=== PATIENT | male | born 1940 | race Caucasian/White ===

== ENCOUNTER 2018-06-10 15:28 | Emergency (ER) | payer MEDICARE ==
[~2018-06-10] VITALS: Ht 177.8 cm; Wt 65.0 kg
[2018-06-10 15:38] VITALS: BP 134/71
== END 2018-06-10 17:54 | disposition home or self-care (01) ==
LOC: ED 17:30
DX: M25.562 Pain in left knee (principal)
CPT/HCPCS: 99284

== ENCOUNTER 2018-09-17 11:11 | Emergency (ER) | payer MEDICARE ==
[~2018-09-17] VITALS: Ht 175.3 cm; Wt 55.0 kg
[2018-09-17 11:37] VITALS: BP 119/67
--- NOTE | 2018-09-17 11:53 | NUR ---
pt states he fell 3 months ago and was seen by AGNIESZKA who indicated his tibial fracture would heal without surgery. pt has had multiple additional falls the last one was yesterday. pt states increased pain to left and right side. requesting assessment.
--- NOTE | 2018-09-17 12:28 | NUR ---
pt in radiology at this time
== END 2018-09-17 14:56 | disposition home or self-care (01) ==
LOC: ED 13:36
DX: S82.225A Nondisplaced transverse fracture of shaft of left tibia, initial encounter for closed fracture (principal); S29.9XXA Unspecified injury of thorax, initial encounter; W18.30XA Fall on same level, unspecified, initial encounter; Y93.89 Activity, other specified; Y92.89 Other specified places as the place of occurrence of the external cause; Y99.8 Other external cause status
CPT/HCPCS: 99284

== ENCOUNTER 2018-12-22 10:27 | Emergency (ER) | payer MEDICARE ==
[~2018-12-22] VITALS: Ht 172.7 cm; Wt 58.2 kg
[2018-12-22 11:37] VITALS: BP 125/61
[2018-12-22 11:40] LABS: BASOPHILS # (AUTO) 0.03 x10^3/uL (0-0.1); BASOPHILS % (AUTO) 0 % (0-1); EOSINOPHILS # (AUTO) 0.09 x10^3/uL (0-0.4); EOSINOPHILS % (AUTO) 1 % (1-7); LYMPHOCYTES # (AUTO) 1.77 x10^3/uL (1-3.4); LYMPHOCYTES % (AUTO) 23 % (22-44); MD NO; MEAN CORPUSCULAR HEMOGLOBIN 31.3 pg (27.5-34.5); MEAN CORPUSCULAR HGB CONC 33.8 g/dL (33.2-36.2); MEAN CORPUSCULAR VOLUME 92.4 fL (81-97); MEAN PLATELET VOLUME 6.9 fL (7.4-10.4); MONOCYTES # (AUTO) 0.56 x10^3/uL (0.2-0.8); MONOCYTES % (AUTO) 7 % (2-9); NEUTROPHILS # (AUTO) 5.16 x10^3/uL (1.8-6.8); NEUTROPHILS % (AUTO) 68 % (42-75); PLATELET COUNT 165 x10^3/uL (130-400); RED BLOOD COUNT 2.72 x10^6/uL (4.38-5.82); RED CELL DISTRIBUTION WIDTH 17.2 % (9.4-14.8)
[2018-12-22 11:49] LABS: INTERNATIONAL NORMALIZED RATIO 1.11 (0.93-1.1); PROTHROMBIN TIME 11.6 Seconds (9.6-11.5)
[2018-12-22 12:00] LABS: ALBUMIN 3.4 g/dL (3.4-5.0); ANION GAP 6 mmol/L (5-15); CALCIUM 8.6 mg/dL (8.5-10.1); CHLORIDE 103 mmol/L (98-107); CREATININE 0.71 mg/dL (0.7-1.3)
== END 2018-12-22 13:38 | disposition home or self-care (01) ==
LOC: ED 10:40
DX: R60.0 Localized edema (principal); D63.8 Anemia in other chronic diseases classified elsewhere
CPT/HCPCS: 36415; 80048; 82040; 85025; 85610; 85730; 99284

== ENCOUNTER 2019-02-04 08:20 | Inpatient (IN) | payer MEDICARE ==
[~2019-02-04] VITALS: Ht 170.2 cm; Wt 64.2 kg
--- NOTE | 2019-02-04 08:31 | NUR ---
POA: Judy Mccray [phone] sister covering Kelli Coyne [phone]
--- NOTE | 2019-02-04 08:59 | NUR ---
PT BIB [facility] FOR LEFT KNEE PAIN/WEAKNESS. PT INJURED LEFT KNEE IN AUGUST AND HAS BEEN PENDING ARTERIAL STUDY PRIOR TO SURGERY WITH DR. CROWDER. PT REQUESTING "ARTERIAL STUDY" AND "PAIN MEDS." PT STATED TO EMS THAT HIS LEGS "GAVE OUT ON ME AND I SLID TO THE GROUND BUT DIDN'T HIT MY HEAD."
[2019-02-04] MEDS ORDERED: ACET650S21 PO (09:17)
[2019-02-04] MEDS ORDERED: MELO15TA24 PO (09:17)
[2019-02-04] MEDS ORDERED: TIZA2TAB PO (09:17)
[2019-02-04 09:33] LABS: BASOPHILS # (AUTO) 0.03 x10^3/uL (0-0.1); BASOPHILS % (AUTO) 0 % (0-1); EOSINOPHILS % (AUTO) 1 % (1-7); LYMPHOCYTES # (AUTO) 1.47 x10^3/uL (1-3.4); LYMPHOCYTES % (AUTO) 20 % (22-44); MD NO; MEAN CORPUSCULAR HEMOGLOBIN 31.7 pg (27.5-34.5); MEAN CORPUSCULAR HGB CONC 32.3 g/dL (33.2-36.2); MEAN CORPUSCULAR VOLUME 98.1 fL (81-97); MEAN PLATELET VOLUME 6.9 fL (7.4-10.4); MONOCYTES # (AUTO) 0.62 x10^3/uL (0.2-0.8); MONOCYTES % (AUTO) 8 % (2-9); NEUTROPHILS # (AUTO) 5.26 x10^3/uL (1.8-6.8); NEUTROPHILS % (AUTO) 70 % (42-75); PLATELET COUNT 153 x10^3/uL (130-400); RED CELL DISTRIBUTION WIDTH 18.4 % (9.4-14.8)
[2019-02-04 09:43] LABS: ALBUMIN 3.2 g/dL (3.4-5.0); ANION GAP 8 mmol/L (5-15); CHLORIDE 101 mmol/L (98-107); CREATININE 0.68 mg/dL (0.7-1.3)
[2019-02-04 10:37] LABS: HCT (SEDRATE) 30.4 % (39.2-51.8)
[2019-02-04 10:48] LABS: MICROSCOPIC NOT IND
[2019-02-04 10:50] LABS: CULTURE INDICATED? NO
[2019-02-04] MEDS ORDERED: OXYcodone/APAP 5/325MG TABLET PO ONE (11:30)
[2019-02-04] MEDS ORDERED: OXYcodone/APAP 5/325MG TABLET ONE (11:32)
--- NOTE | 2019-02-04 11:36 | NUR ---
Preceptor RN: Provided medication to pt per [facility] for 10/10 lower back pain. Both bedrails up for safety measures. Call light within reach. Pt connected to NIBP, continous pulse ox, and tie knitter helper. ED MD at bedside discussing plan of care with pt. No other needs expressed.
--- NOTE | 2019-02-04 11:40 | NUR ---
Preceptor RN: Elevated pt's left leg per ED MD verbal order. Provided pt with urinal per pt request. Call light within reach. Both bedrails up for safety measures.
--- NOTE | 2019-02-04 11:47 | NUR ---
PT TO CT.
[2019-02-04] MEDS ORDERED: ONDANSETRON 2MG/ML, 2ML IVPush ONE (12:00)
[2019-02-04] MEDS ORDERED: MORPHINE SULFATE 4 MG/ML, 1ML IVPush PRN (12:00)
--- NOTE | 2019-02-04 12:15 | NUR ---
LUNCH RN: HOSPITALIST AT BEDSIDE FOR ADMIT ASSESSMENT.
--- NOTE | 2019-02-04 12:58 | NUR ---
PT ADMITTED TO FLOOR, ROOM 433. PT TAKEN UP WITH TECH WITH ALL BELONGINGS. REPORT GIVEN TO EDWIN RUVALCABA. PT IN NO ACUTE DISTRESS.
[2019-02-04 13:14] VITALS: BP 152/83
[2019-02-04 13:30] VITALS: BP 152/83
[2019-02-04] MEDS ORDERED: POLYETHYLENE GLYCOL 17 GM PACKET PO PRN (14:00)
[2019-02-04] MEDS ORDERED: ONDANSETRON 2MG/ML, 2ML IVPush PRN (14:00)
[2019-02-04] MEDS ORDERED: ONDANSETRON ODT 4 MG PO PRN (14:00)
[2019-02-04] MEDS ORDERED: LABETALOL 5MG/ML, 20ML IVPush PRN (14:00)
[2019-02-04] MEDS: HYDROcodone/APAP 5/325 TABLET PO PRN ×2 (18:20→22:36)
[2019-02-04 19:28] VITALS: BP 120/72
[2019-02-05 03:10] VITALS: BP 131/75
[2019-02-05] MEDS: HYDROcodone/APAP 5/325 TABLET PO PRN ×2 (05:02→20:48)
[2019-02-05 05:31] LABS: BASOPHILS # (AUTO) 0.03 x10^3/uL (0-0.1); BASOPHILS % (AUTO) 0 % (0-1); EOSINOPHILS # (AUTO) 0.14 x10^3/uL (0-0.4); EOSINOPHILS % (AUTO) 2 % (1-7); LYMPHOCYTES # (AUTO) 1.75 x10^3/uL (1-3.4); LYMPHOCYTES % (AUTO) 25 % (22-44); MD NO; MEAN CORPUSCULAR HEMOGLOBIN 31.9 pg (27.5-34.5); MEAN CORPUSCULAR HGB CONC 32.9 g/dL (33.2-36.2); MEAN PLATELET VOLUME 7.1 fL (7.4-10.4); MONOCYTES # (AUTO) 0.63 x10^3/uL (0.2-0.8); MONOCYTES % (AUTO) 9 % (2-9); NEUTROPHILS # (AUTO) 4.61 x10^3/uL (1.8-6.8); NEUTROPHILS % (AUTO) 64 % (42-75); PLATELET COUNT 155 x10^3/uL (130-400); RED CELL DISTRIBUTION WIDTH 18.6 % (9.4-14.8)
[2019-02-05 05:34] LABS: ALBUMIN 2.9 g/dL (3.4-5.0); ANION GAP 6 mmol/L (5-15); CALCIUM 8.7 mg/dL (8.5-10.1); CHLORIDE 100 mmol/L (98-107)
[2019-02-05 05:49] LABS: ALANINE AMINOTRANSFERASE 42 U/L (12-78); ALKALINE PHOSPHATASE 1831 U/L (45-117); BILIRUBIN,TOTAL 1.4 mg/dL (0.2-1.0); CREATININE 0.69 mg/dL (0.7-1.3); TOTAL PROTEIN 5.5 g/dL (6.4-8.2)
[2019-02-05 07:05] VITALS: BP 129/81
[2019-02-05] MEDS: PANTOPRAZOLE 40 MG IV IVPush SCH (07:30)
[2019-02-05] MEDS: SENNA/DOCUSATE TABLET PO SCH (08:27)
[2019-02-05 12:36] VITALS: BP 128/80
[2019-02-05] MEDS ORDERED: GADOBUTROL 7.5 MMOL/7.5 ML PFS ONE (13:21)
[2019-02-05 20:03] VITALS: BP 115/64
[2019-02-06 02:00] VITALS: BP 142/77
[2019-02-06] MEDS: HYDROcodone/APAP 5/325 TABLET PO PRN ×2 (02:47→11:47)
[2019-02-06 05:56] LABS: BASOPHILS # (AUTO) 0.04 x10^3/uL (0-0.1); BASOPHILS % (AUTO) 1 % (0-1); EOSINOPHILS % (AUTO) 3 % (1-7); LYMPHOCYTES # (AUTO) 1.88 x10^3/uL (1-3.4); LYMPHOCYTES % (AUTO) 25 % (22-44); MD NO; MEAN CORPUSCULAR HEMOGLOBIN 31.8 pg (27.5-34.5); MEAN CORPUSCULAR HGB CONC 32.5 g/dL (33.2-36.2); MEAN CORPUSCULAR VOLUME 97.7 fL (81-97); MEAN PLATELET VOLUME 7.2 fL (7.4-10.4); MONOCYTES # (AUTO) 0.65 x10^3/uL (0.2-0.8); MONOCYTES % (AUTO) 9 % (2-9); NEUTROPHILS % (AUTO) 63 % (42-75); PLATELET COUNT 151 x10^3/uL (130-400); RED CELL DISTRIBUTION WIDTH 17.8 % (9.4-14.8)
[2019-02-06 06:04] LABS: CHLORIDE 100 mmol/L (98-107)
[2019-02-06 06:23] LABS: ALANINE AMINOTRANSFERASE 33 U/L (12-78); ALBUMIN 2.7 g/dL (3.4-5.0); ALKALINE PHOSPHATASE 1733 U/L (45-117); ANION GAP 7 mmol/L (5-15); BILIRUBIN,TOTAL 0.9 mg/dL (0.2-1.0); CALCIUM 8.4 mg/dL (8.5-10.1); CREATININE 0.66 mg/dL (0.7-1.3); TOTAL PROTEIN 5.2 g/dL (6.4-8.2)
[2019-02-06] MEDS ORDERED: NEOSPORIN OINT, 15GM ONE (07:58)
[2019-02-06] MEDS ORDERED: BUPIVACAINE/EPI 0.5% 1:200K ONE (07:58)
[2019-02-06] MEDS ORDERED: FENTANYL PF 250 MCG/5ML ONE (08:02)
[2019-02-06] MEDS ORDERED: CEFAZOLIN 1,000 MG ONE ×2 (08:02)
[2019-02-06] MEDS ORDERED: MIDAZOLAM 1 MG/ML, 2ML ONE (08:02)
[2019-02-06] MEDS ORDERED: LIDOCAINE-MPF 2% ,5ML ONE (08:02)
[2019-02-06] MEDS ORDERED: DEXAMETHASONE 4 MG/ML, 1ML ONE ×2 (08:02)
[2019-02-06] MEDS ORDERED: ROCURONIUM 10MG/ML,5ML ONE (08:02)
[2019-02-06] MEDS ORDERED: PROPOFOL 10 MG/ML, 20ML ONE (08:02)
[2019-02-06] MEDS ORDERED: PHENYLEPHRINE 10 MG/ML ONE (08:03)
[2019-02-06] MEDS ORDERED: METOPROLOL 1 MG/ML, 5ML IV PRN (10:00)
[2019-02-06] MEDS ORDERED: KETOROLAC 30 MG/1 ML IV PRN (10:00)
[2019-02-06] MEDS ORDERED: HYDROmorphone 2 MG/ML, 1ML IVPush PRN (10:00)
[2019-02-06] MEDS ORDERED: OXYcodone 5 MG/5 ML ORAL.SOL UDC PO PRN (10:00)
[2019-02-06] MEDS ORDERED: hydrALAzine 20 MG/ML, 1ML IV PRN (10:00)
[2019-02-06] MEDS ORDERED: MEPERIDINE/PF 25MG/0.5ML IVPush PRN (10:00)
[2019-02-06] MEDS ORDERED: ACETAMINOPHEN 325 MG TABLET PO PRN (10:00)
[2019-02-06] MEDS ORDERED: METOCLOPRAMIDE 5 MG/ML, 2ML IV PRN (10:00)
[2019-02-06] MEDS ORDERED: LORazepam 2 MG/ML, 1ML IVPush PRN (10:00)
[2019-02-06] MEDS ORDERED: LABETALOL 5MG/ML, 20ML IV PRN (10:00)
[2019-02-06] MEDS ORDERED: FENTANYL PF 100 MCG/2ML IV PRN (10:00)
[2019-02-06] MEDS ORDERED: ONDANSETRON 2MG/ML, 2ML IV PRN (10:00)
[2019-02-06] MEDS ORDERED: ONDANSETRON 2MG/ML, 2ML ONE (10:05)
[2019-02-06] MEDS ORDERED: CEFAZOLIN PMX 1GM/50ML 50 ML IV SCH (10:30)
[2019-02-06] MEDS: SENNA/DOCUSATE TABLET PO SCH (11:47)
[2019-02-06] MEDS: PANTOPRAZOLE 40 MG IV IVPush SCH (11:47)
[2019-02-06 12:54] VITALS: BP 137/73
[2019-02-06] MEDS ORDERED: morphine SULFATE 10 MG/ML, 1ML IVPush PRN (14:00)
[2019-02-06] MEDS: CEFAZOLIN PMX 1GM/50ML 50 ML IV SCH ×2 (15:12→23:25)
[2019-02-06] MEDS: OXYcodone/APAP 7.5/325MG TABLET PO PRN (15:21)
[2019-02-06 19:52] VITALS: BP 97/58
[2019-02-07 00:14] VITALS: BP 102/55
[2019-02-07] MEDS: HYDROcodone/APAP 5/325 TABLET PO PRN (03:00)
[2019-02-07 04:07] VITALS: BP 98/55
[2019-02-07 05:28] LABS: MEAN CORPUSCULAR HEMOGLOBIN 31.5 pg (27.5-34.5); MEAN CORPUSCULAR HGB CONC 32.7 g/dL (33.2-36.2); MEAN CORPUSCULAR VOLUME 96.3 fL (81-97); MEAN PLATELET VOLUME 7.3 fL (7.4-10.4); PLATELET COUNT 152 x10^3/uL (130-400); RED BLOOD COUNT 2.33 x10^6/uL (4.38-5.82); RED CELL DISTRIBUTION WIDTH 18.4 % (9.4-14.8)
[2019-02-07 05:39] LABS: ALBUMIN 2.5 g/dL (3.4-5.0); ANION GAP 4 mmol/L (5-15); CALCIUM 7.8 mg/dL (8.5-10.1); CHLORIDE 99 mmol/L (98-107)
[2019-02-07 05:55] LABS: ALANINE AMINOTRANSFERASE 25 U/L (12-78); ALKALINE PHOSPHATASE 1359 U/L (45-117); BILIRUBIN,TOTAL 0.9 mg/dL (0.2-1.0); CREATININE 0.89 mg/dL (0.7-1.3); TOTAL PROTEIN 4.7 g/dL (6.4-8.2)
[2019-02-07 06:29] LABS: BASOPHILS # (AUTO) 0.02 x10^3/uL (0-0.1); BASOPHILS % (AUTO) 0 % (0-1); EOSINOPHILS # (AUTO) 0.01 x10^3/uL (0-0.4); EOSINOPHILS % (AUTO) 0 % (1-7); LYMPHOCYTES # (AUTO) 1.31 x10^3/uL (1-3.4); LYMPHOCYTES % (AUTO) 16 % (22-44); MD MORPH REVIEW ONLY; MONOCYTES # (AUTO) 0.89 x10^3/uL (0.2-0.8); MONOCYTES % (AUTO) 11 % (2-9); NEUTROPHILS # (AUTO) 6.18 x10^3/uL (1.8-6.8); NEUTROPHILS % (AUTO) 74 % (42-75)
[2019-02-07 06:30] LABS: ANISOCYTOSIS 1+; POLYCHROMASIA 1+
[2019-02-07 06:31] LABS: OVALOCYTES 1+
[2019-02-07 06:32] LABS: <PLATELET ESTIMATE> ADEQUATE; <PLT MORPHOLOGY> NORMAL PLT MORPH
[2019-02-07] MEDS: CEFAZOLIN PMX 1GM/50ML 50 ML IV SCH (06:37)
[2019-02-07] MEDS: PANTOPROZOLE 40MG TABLET PO SCH (06:37)
[2019-02-07 06:41] VITALS: BP 96/55
[2019-02-07] MEDS ORDERED: FUROSEMIDE 20 MG/2 ML IV ONE (08:00)
[2019-02-07 08:32] LABS: BASOPHILS # (AUTO) 0.02 x10^3/uL (0-0.1); BASOPHILS % (AUTO) 0 % (0-1); EOSINOPHILS # (AUTO) 0.02 x10^3/uL (0-0.4); EOSINOPHILS % (AUTO) 0 % (1-7); LYMPHOCYTES # (AUTO) 1.48 x10^3/uL (1-3.4); LYMPHOCYTES % (AUTO) 16 % (22-44); MD NO; MEAN CORPUSCULAR HEMOGLOBIN 31.7 pg (27.5-34.5); MEAN CORPUSCULAR HGB CONC 32.8 g/dL (33.2-36.2); MEAN CORPUSCULAR VOLUME 96.4 fL (81-97); MEAN PLATELET VOLUME 6.8 fL (7.4-10.4); MONOCYTES # (AUTO) 0.92 x10^3/uL (0.2-0.8); MONOCYTES % (AUTO) 10 % (2-9); NEUTROPHILS # (AUTO) 6.68 x10^3/uL (1.8-6.8); NEUTROPHILS % (AUTO) 73 % (42-75); PLATELET COUNT 169 x10^3/uL (130-400); RED BLOOD COUNT 2.32 x10^6/uL (4.38-5.82); RED CELL DISTRIBUTION WIDTH 18.2 % (9.4-14.8)
[2019-02-07] MEDS: OXYcodone/APAP 7.5/325MG TABLET PO PRN ×3 (10:09→21:24)
[2019-02-07] MEDS: SENNA/DOCUSATE TABLET PO SCH (10:10)
[2019-02-07] MEDS: ENOXAPARIN 40 MG/0.4 ML SQ SCH (10:11)
[2019-02-07 13:24] VITALS: BP 94/48
[2019-02-07 20:12] VITALS: BP 105/54
[2019-02-08] VITALS (8 sets, daily range): BP systolic 99–118; BP diastolic 50–74
[2019-02-08] MEDS: PANTOPROZOLE 40MG TABLET PO SCH (06:15)
[2019-02-08] MEDS: OXYcodone/APAP 7.5/325MG TABLET PO PRN ×3 (06:15→20:46)
[2019-02-08 08:34] LABS: MEAN CORPUSCULAR HEMOGLOBIN 31.3 pg (27.5-34.5); MEAN CORPUSCULAR HGB CONC 32.4 g/dL (33.2-36.2); MEAN CORPUSCULAR VOLUME 96.7 fL (81-97); MEAN PLATELET VOLUME 6.5 fL (7.4-10.4); PLATELET COUNT 189 x10^3/uL (130-400); RED BLOOD COUNT 2.25 x10^6/uL (4.38-5.82); RED CELL DISTRIBUTION WIDTH 17.9 % (9.4-14.8)
[2019-02-08 08:44] LABS: ALANINE AMINOTRANSFERASE 25 U/L (12-78); ALBUMIN 2.7 g/dL (3.4-5.0); ANION GAP 6 mmol/L (5-15); CALCIUM 8.3 mg/dL (8.5-10.1); CHLORIDE 100 mmol/L (98-107); CREATININE 0.92 mg/dL (0.7-1.3)
[2019-02-08 08:58] LABS: ALKALINE PHOSPHATASE 1480 U/L (45-117); BILIRUBIN,TOTAL 0.8 mg/dL (0.2-1.0); TOTAL PROTEIN 5.4 g/dL (6.4-8.2)
[2019-02-08] MEDS: SENNA/DOCUSATE TABLET PO SCH (09:00)
[2019-02-08 09:02] LABS: BASOPHILS # (AUTO) 0.04 x10^3/uL (0-0.1); BASOPHILS % (AUTO) 0 % (0-1); EOSINOPHILS # (AUTO) 0.16 x10^3/uL (0-0.4); EOSINOPHILS % (AUTO) 2 % (1-7); LYMPHOCYTES # (AUTO) 1.91 x10^3/uL (1-3.4); LYMPHOCYTES % (AUTO) 23 % (22-44); MD SCAN; MONOCYTES # (AUTO) 0.67 x10^3/uL (0.2-0.8); MONOCYTES % (AUTO) 8 % (2-9); NEUTROPHILS # (AUTO) 5.69 x10^3/uL (1.8-6.8); NEUTROPHILS % (AUTO) 67 % (42-75)
[2019-02-08] MEDS: ENOXAPARIN 40 MG/0.4 ML SQ SCH (10:12)
[2019-02-08] MEDS: DEXAMETHASONE 4 MG/ML, 1ML IVPush SCH ×3 (11:00→23:28)
[2019-02-08] MEDS: HYDROcodone/APAP 5/325 TABLET PO PRN (17:01)
[2019-02-09 00:24] VITALS: BP 116/54
[2019-02-09] MEDS: PANTOPROZOLE 40MG TABLET PO SCH (05:50)
[2019-02-09] MEDS: DEXAMETHASONE 4 MG/ML, 1ML IVPush SCH ×4 (05:50→23:18)
[2019-02-09 06:56] VITALS: BP 123/63
[2019-02-09] MEDS: SENNA/DOCUSATE TABLET PO SCH (09:00)
[2019-02-09] MEDS ORDERED: MIDAZOLAM 1 MG/ML, 2ML ONE (11:02)
[2019-02-09] MEDS ORDERED: FENTANYL PF 250 MCG/5ML ONE (11:02)
[2019-02-09] MEDS ORDERED: LIDOCAINE-MPF 2% ,5ML ONE (11:03)
[2019-02-09] MEDS ORDERED: DEXAMETHASONE 4 MG/ML, 1ML ONE (11:03)
[2019-02-09] MEDS ORDERED: SUCCINYLCHOLINE 20 MG/ML, 10ML ONE (11:03)
[2019-02-09 12:02] VITALS: BP 110/60
[2019-02-09] MEDS ORDERED: GABAPENTIN 300 MG CAPSULE PO ONE (12:30)
[2019-02-09] MEDS ORDERED: ACETAMINOPHEN 500 MG TABLET PO ONE (12:30)
[2019-02-09] MEDS ORDERED: methylPREDNISolone *ACETATE* 40 MG/ML ONE (13:09)
[2019-02-09] MEDS ORDERED: BACITRACIN ZINC OINT 500U/GM, 0.9 GM ONE (13:09)
[2019-02-09] MEDS ORDERED: BUPIVACAINE/EPI 0.5% 1:200K ONE (13:09)
[2019-02-09] MEDS ORDERED: THROMBIN 5,000 UNIT VIAL TP ONE (13:09)
[2019-02-09] MEDS ORDERED: BACITRACIN 50,000 UNIT ONE (13:10)
[2019-02-09] MEDS ORDERED: PROPOFOL 50 ML ONE ×3 (13:16→16:52)
[2019-02-09] MEDS ORDERED: BUPIVACAINE/EPI 0.5% 1:200K INFIL ONE (15:27)
[2019-02-09] MEDS ORDERED: EPHEDRINE 50 MG/ML, 1ML IVPush PRN (18:00)
[2019-02-09] MEDS ORDERED: HYDROmorphone 2 MG/ML, 1ML IVPush PRN (18:00)
[2019-02-09] MEDS ORDERED: FENTANYL PF 100 MCG/2ML IV PRN (18:00)
[2019-02-09] MEDS ORDERED: OXYcodone 5 MG/5 ML ORAL.SOL UDC PO PRN (18:00)
[2019-02-09] MEDS ORDERED: LORazepam 2 MG/ML, 1ML IVPush PRN (18:00)
[2019-02-09 21:20] VITALS: BP 104/59
[2019-02-09] MEDS ORDERED: SODIUM CHLORIDE 0.9% 1,000 ML IV SCH (22:30)
[2019-02-09] MEDS: CEFAZOLIN PMX 1GM/50ML 50 ML IV SCH (23:18)
[2019-02-10 00:25] VITALS: BP 95/46
[2019-02-10 04:05] VITALS: BP 91/54
[2019-02-10 04:54] LABS: MEAN CORPUSCULAR HEMOGLOBIN 31.8 pg (27.5-34.5); MEAN CORPUSCULAR HGB CONC 33.1 g/dL (33.2-36.2); MEAN CORPUSCULAR VOLUME 95.9 fL (81-97); MEAN PLATELET VOLUME 7.2 fL (7.4-10.4); PLATELET COUNT 202 x10^3/uL (130-400); RED BLOOD COUNT 2.28 x10^6/uL (4.38-5.82); RED CELL DISTRIBUTION WIDTH 17.1 % (9.4-14.8)
[2019-02-10] MEDS: DEXAMETHASONE 4 MG/ML, 1ML IVPush SCH ×4 (04:55→23:30)
[2019-02-10 05:07] LABS: ALBUMIN 2.2 g/dL (3.4-5.0); ANION GAP 4 mmol/L (5-15); CALCIUM 7.9 mg/dL (8.5-10.1); CHLORIDE 104 mmol/L (98-107)
[2019-02-10 05:21] LABS: ALANINE AMINOTRANSFERASE 17 U/L (12-78); ALKALINE PHOSPHATASE 1030 U/L (45-117); BILIRUBIN,TOTAL 0.6 mg/dL (0.2-1.0); CREATININE 0.59 mg/dL (0.7-1.3); TOTAL PROTEIN 4.2 g/dL (6.4-8.2)
[2019-02-10 06:22] LABS: MD YES
[2019-02-10 06:24] LABS: ANISOCYTOSIS 1+; BAND#(MANUAL) 0.11 x10^3/uL; BANDS%(MANUAL) 1 % (0-7); LYMPH#(MANUAL) 1.48 x10^3/uL (1-3.4); LYMPHS% (MANUAL) 14 % (22-44); MONOS#(MANUAL) 0.11 x10^3/uL (0.3-2.7); MONOS% (MANUAL) 1 % (2-9); POLYCHROMASIA 1+; SEGS% (MANUAL) 84 % (42-75)
[2019-02-10] MEDS: CEFAZOLIN PMX 1GM/50ML 50 ML IV SCH ×2 (06:25→15:53)
[2019-02-10] MEDS: PANTOPROZOLE 40MG TABLET PO SCH (06:25)
[2019-02-10 06:26] LABS: <PLATELET ESTIMATE> ADEQUATE; <PLT MORPHOLOGY> NORMAL PLT MORPH
[2019-02-10 07:10] VITALS: BP 98/54
[2019-02-10] MEDS: OXYcodone/APAP 7.5/325MG TABLET PO PRN ×4 (08:00→21:53)
[2019-02-10] MEDS: SENNA/DOCUSATE TABLET PO SCH (08:00)
[2019-02-10 12:21] LABS: MEAN CORPUSCULAR HEMOGLOBIN 31.7 pg (27.5-34.5); MEAN CORPUSCULAR HGB CONC 32.9 g/dL (33.2-36.2); MEAN CORPUSCULAR VOLUME 96.2 fL (81-97); MEAN PLATELET VOLUME 7.3 fL (7.4-10.4); PLATELET COUNT 229 x10^3/uL (130-400); RED BLOOD COUNT 2.31 x10^6/uL (4.38-5.82); RED CELL DISTRIBUTION WIDTH 17.3 % (9.4-14.8)
[2019-02-10 12:58] VITALS: BP 107/57
[2019-02-10 13:02] LABS: BASOPHILS # (AUTO) 0.03 x10^3/uL (0-0.1); BASOPHILS % (AUTO) 0 % (0-1); EOSINOPHILS % (AUTO) 0 % (1-7); LYMPHOCYTES # (AUTO) 1.16 x10^3/uL (1-3.4); LYMPHOCYTES % (AUTO) 11 % (22-44); MD MORPH REVIEW ONLY; MONOCYTES # (AUTO) 0.77 x10^3/uL (0.2-0.8); MONOCYTES % (AUTO) 7 % (2-9); NEUTROPHILS # (AUTO) 8.51 x10^3/uL (1.8-6.8); NEUTROPHILS % (AUTO) 81 % (42-75)
[2019-02-10 13:03] LABS: ANISOCYTOSIS 1+; OVALOCYTES 1+; POLYCHROMASIA 1+
[2019-02-10 13:05] LABS: <PLATELET ESTIMATE> ADEQUATE; <PLT MORPHOLOGY> NORMAL PLT MORPH
[2019-02-10 20:13] VITALS: BP 123/60
[2019-02-11] VITALS (8 sets, daily range): BP systolic 107–138; BP diastolic 50–69
[2019-02-11] MEDS: OXYcodone/APAP 7.5/325MG TABLET PO PRN ×5 (04:47→22:56)
[2019-02-11] MEDS: DEXAMETHASONE 4 MG/ML, 1ML IVPush SCH ×4 (04:47→22:55)
[2019-02-11 05:39] LABS: CHLORIDE 104 mmol/L (98-107)
[2019-02-11 05:42] LABS: MEAN CORPUSCULAR HGB CONC 32.4 g/dL (33.2-36.2); MEAN CORPUSCULAR VOLUME 95.7 fL (81-97); PLATELET COUNT 237 x10^3/uL (130-400); RED BLOOD COUNT 2.15 x10^6/uL (4.38-5.82)
[2019-02-11 06:04] LABS: ALANINE AMINOTRANSFERASE 16 U/L (12-78); ALBUMIN 2.2 g/dL (3.4-5.0); ALKALINE PHOSPHATASE 970 U/L (45-117); ANION GAP 4 mmol/L (5-15); BILIRUBIN,TOTAL 0.6 mg/dL (0.2-1.0); CALCIUM 7.9 mg/dL (8.5-10.1); CREATININE 0.82 mg/dL (0.7-1.3); TOTAL PROTEIN 4.5 g/dL (6.4-8.2)
[2019-02-11 06:09] LABS: BASOPHILS % (AUTO) 0 % (0-1); EOSINOPHILS % (AUTO) 0 % (1-7); LYMPHOCYTES # (AUTO) 1.35 x10^3/uL (1-3.4); LYMPHOCYTES % (AUTO) 12 % (22-44); MD SCAN; MONOCYTES # (AUTO) 0.99 x10^3/uL (0.2-0.8); MONOCYTES % (AUTO) 9 % (2-9); NEUTROPHILS # (AUTO) 9.37 x10^3/uL (1.8-6.8); NEUTROPHILS % (AUTO) 80 % (42-75)
[2019-02-11] MEDS: PANTOPROZOLE 40MG TABLET PO SCH (06:28)
[2019-02-11] MEDS: SENNA/DOCUSATE TABLET PO SCH (08:30)
[2019-02-12 01:23] VITALS: BP_SYST 118; BP_SYST 150; BP_DIAS 79; BP_DIAS 82
[2019-02-12] MEDS: OXYcodone/APAP 7.5/325MG TABLET PO PRN (03:55)
[2019-02-12] MEDS: DEXAMETHASONE 4 MG/ML, 1ML IVPush SCH ×4 (04:48→22:30)
[2019-02-12 05:31] LABS: BASOPHILS % (AUTO) 0 % (0-1); EOSINOPHILS # (AUTO) 0.01 x10^3/uL (0-0.4); EOSINOPHILS % (AUTO) 0 % (1-7); LYMPHOCYTES # (AUTO) 1.59 x10^3/uL (1-3.4); LYMPHOCYTES % (AUTO) 12 % (22-44); MD NO; MEAN CORPUSCULAR HEMOGLOBIN 30.8 pg (27.5-34.5); MEAN CORPUSCULAR HGB CONC 32.8 g/dL (33.2-36.2); MEAN CORPUSCULAR VOLUME 94.1 fL (81-97); MEAN PLATELET VOLUME 6.9 fL (7.4-10.4); MONOCYTES # (AUTO) 0.85 x10^3/uL (0.2-0.8); MONOCYTES % (AUTO) 7 % (2-9); NEUTROPHILS # (AUTO) 10.73 x10^3/uL (1.8-6.8); NEUTROPHILS % (AUTO) 81 % (42-75); PLATELET COUNT 254 x10^3/uL (130-400); RED BLOOD COUNT 2.81 x10^6/uL (4.38-5.82)
[2019-02-12 05:40] LABS: CHLORIDE 105 mmol/L (98-107)
[2019-02-12 05:58] LABS: ALANINE AMINOTRANSFERASE 18 U/L (12-78); ALBUMIN 2.3 g/dL (3.4-5.0); ALKALINE PHOSPHATASE 936 U/L (45-117); ANION GAP 3 mmol/L (5-15); BILIRUBIN,TOTAL 0.8 mg/dL (0.2-1.0); CALCIUM 8.1 mg/dL (8.5-10.1); CREATININE 0.68 mg/dL (0.7-1.3); TOTAL PROTEIN 4.8 g/dL (6.4-8.2)
[2019-02-12] MEDS: PANTOPROZOLE 40MG TABLET PO SCH (06:40)
[2019-02-12 07:24] VITALS: BP 140/77
[2019-02-12] MEDS: SENNA/DOCUSATE TABLET PO SCH (08:49)
[2019-02-12] MEDS: HYDROcodone/APAP 5/325 TABLET PO PRN ×4 (08:49→22:30)
[2019-02-12] MEDS: CYCLOBENZAPRINE 10 MG TABLET PO SCH ×3 (09:52→22:30)
[2019-02-12 13:11] VITALS: BP 135/62
[2019-02-12 15:55] LABS: MICROSCOPIC NOT IND
[2019-02-12 15:57] LABS: CULTURE INDICATED? NO
[2019-02-12 21:03] VITALS: BP 137/76
[2019-02-13] MEDS: HYDROcodone/APAP 5/325 TABLET PO PRN ×3 (03:13→12:26)
[2019-02-13 04:06] VITALS: BP 135/77
[2019-02-13] MEDS: PANTOPROZOLE 40MG TABLET PO SCH (05:29)
[2019-02-13] MEDS: DEXAMETHASONE 4 MG/ML, 1ML IVPush SCH ×4 (05:29→21:23)
[2019-02-13 05:37] LABS: BASOPHILS % (AUTO) 0 % (0-1); EOSINOPHILS # (AUTO) 0.01 x10^3/uL (0-0.4); EOSINOPHILS % (AUTO) 0 % (1-7); LYMPHOCYTES # (AUTO) 1.52 x10^3/uL (1-3.4); LYMPHOCYTES % (AUTO) 11 % (22-44); MD NO; MEAN CORPUSCULAR HEMOGLOBIN 31.2 pg (27.5-34.5); MEAN CORPUSCULAR HGB CONC 32.7 g/dL (33.2-36.2); MEAN CORPUSCULAR VOLUME 95.4 fL (81-97); MEAN PLATELET VOLUME 6.9 fL (7.4-10.4); MONOCYTES # (AUTO) 0.78 x10^3/uL (0.2-0.8); MONOCYTES % (AUTO) 6 % (2-9); NEUTROPHILS # (AUTO) 11.68 x10^3/uL (1.8-6.8); NEUTROPHILS % (AUTO) 84 % (42-75); PLATELET COUNT 272 x10^3/uL (130-400); RED BLOOD COUNT 2.65 x10^6/uL (4.38-5.82); RED CELL DISTRIBUTION WIDTH 17.4 % (9.4-14.8)
[2019-02-13 07:01] VITALS: BP 129/77
[2019-02-13] MEDS: CYCLOBENZAPRINE 10 MG TABLET PO SCH ×3 (08:13→21:23)
[2019-02-13] MEDS: SENNA/DOCUSATE TABLET PO SCH (08:13)
[2019-02-13] MEDS ORDERED: OMNIPAQUE 350 MG/ML, 100ML BOTTLE ONE (12:56)
[2019-02-13 13:11] VITALS: BP 125/69
[2019-02-13 19:14] VITALS: BP 123/65
[2019-02-14 01:48] VITALS: BP 127/76
[2019-02-14] MEDS: PANTOPROZOLE 40MG TABLET PO SCH (05:20)
[2019-02-14 07:50] VITALS: BP 134/84
[2019-02-14] MEDS: SENNA/DOCUSATE TABLET PO SCH (09:00)
[2019-02-14] MEDS: CYCLOBENZAPRINE 10 MG TABLET PO SCH ×3 (09:19→20:23)
[2019-02-14] MEDS: DEXAMETHASONE 4 MG/ML, 1ML IVPush SCH ×3 (09:19→20:23)
[2019-02-14 12:38] VITALS: BP 128/73
[2019-02-14] MEDS: HYDROcodone/APAP 5/325 TABLET PO PRN (19:37)
[2019-02-14 19:47] VITALS: BP 140/76
[2019-02-15] MEDS: HYDROcodone/APAP 5/325 TABLET PO PRN ×3 (01:52→14:21)
[2019-02-15 02:26] VITALS: BP 124/73
[2019-02-15] MEDS: PANTOPROZOLE 40MG TABLET PO SCH (05:43)
[2019-02-15 06:10] LABS: ALBUMIN 2.3 g/dL (3.4-5.0); ANION GAP 4 mmol/L (5-15); CALCIUM 7.9 mg/dL (8.5-10.1); CHLORIDE 103 mmol/L (98-107)
[2019-02-15 06:13] LABS: MEAN CORPUSCULAR HEMOGLOBIN 30.7 pg (27.5-34.5); MEAN PLATELET VOLUME 6.6 fL (7.4-10.4); PLATELET COUNT 302 x10^3/uL (130-400); RED CELL DISTRIBUTION WIDTH 17.5 % (9.4-14.8)
[2019-02-15 06:29] LABS: ALANINE AMINOTRANSFERASE 27 U/L (12-78); ALKALINE PHOSPHATASE 970 U/L (45-117); BILIRUBIN,TOTAL 0.5 mg/dL (0.2-1.0); CREATININE 0.57 mg/dL (0.7-1.3); TOTAL PROTEIN 4.5 g/dL (6.4-8.2)
[2019-02-15 06:40] LABS: MD YES
[2019-02-15 06:41] LABS: ANISOCYTOSIS 1+; BAND#(MANUAL) 0.15 x10^3/uL; BANDS%(MANUAL) 1 % (0-7); LYMPH#(MANUAL) 0.77 x10^3/uL (1-3.4); LYMPHS% (MANUAL) 5 % (22-44); MONOS#(MANUAL) 1.22 x10^3/uL (0.3-2.7); MONOS% (MANUAL) 8 % (2-9); NRBC % (MANUAL) 3 % (0-1); POLYCHROMASIA 1+; SEG#(MANUAL) 13.16 x10^3/uL (1.8-6.8); SEGS% (MANUAL) 86 % (42-75)
[2019-02-15 06:42] LABS: <PLATELET ESTIMATE> ADEQUATE; <PLT MORPHOLOGY> NORMAL PLT MORPH
[2019-02-15] MEDS: DEXAMETHASONE 4 MG/ML, 1ML IVPush SCH ×3 (08:02→20:51)
[2019-02-15] MEDS: SENNA/DOCUSATE TABLET PO SCH (08:02)
[2019-02-15] MEDS: CYCLOBENZAPRINE 10 MG TABLET PO SCH ×3 (08:03→20:51)
[2019-02-15 09:00] VITALS: BP 153/77
[2019-02-15 13:26] VITALS: BP 123/72
[2019-02-15 18:45] VITALS: BP 157/75
[2019-02-16 00:44] VITALS: BP 136/75
[2019-02-16] MEDS: PANTOPROZOLE 40MG TABLET PO SCH (06:11)
[2019-02-16] MEDS: HYDROcodone/APAP 5/325 TABLET PO PRN ×2 (06:13→18:21)
[2019-02-16 07:10] VITALS: BP 123/77
[2019-02-16] MEDS: CYCLOBENZAPRINE 10 MG TABLET PO SCH ×3 (08:12→20:41)
[2019-02-16] MEDS: DEXAMETHASONE 4 MG/ML, 1ML IVPush SCH (08:12)
[2019-02-16] MEDS: SENNA/DOCUSATE TABLET PO SCH (08:12)
[2019-02-16] MEDS: DEXAMETHASONE 4 MG TABLET PO SCH ×2 (11:41→16:16)
[2019-02-16 13:05] VITALS: BP 137/70
[2019-02-16 18:23] VITALS: BP 132/68
[2019-02-16 19:09] VITALS: BP 120/64
[2019-02-16] MEDS: ENOXAPARIN 40 MG/0.4 ML SQ SCH (20:41)
[2019-02-17 02:31] VITALS: BP 130/76
[2019-02-17] MEDS: HYDROcodone/APAP 5/325 TABLET PO PRN ×3 (03:47→12:04)
[2019-02-17 04:28] LABS: BASOPHILS % (AUTO) 1 % (0-1); EOSINOPHILS % (AUTO) 0 % (1-7); LYMPHOCYTES % (AUTO) 7 % (22-44); MD NO; MEAN CORPUSCULAR HEMOGLOBIN 31.4 pg (27.5-34.5); MEAN CORPUSCULAR HGB CONC 32.3 g/dL (33.2-36.2); MEAN PLATELET VOLUME 6.5 fL (7.4-10.4); MONOCYTES # (AUTO) 0.79 x10^3/uL (0.2-0.8); MONOCYTES % (AUTO) 5 % (2-9); NEUTROPHILS % (AUTO) 88 % (42-75); PLATELET COUNT 324 x10^3/uL (130-400); RED BLOOD COUNT 2.83 x10^6/uL (4.38-5.82); RED CELL DISTRIBUTION WIDTH 17.9 % (9.4-14.8)
[2019-02-17 04:37] LABS: ANION GAP 3 mmol/L (5-15); CALCIUM 7.8 mg/dL (8.5-10.1); CHLORIDE 101 mmol/L (98-107); CREATININE 0.68 mg/dL (0.7-1.3)
[2019-02-17] MEDS: PANTOPROZOLE 40MG TABLET PO SCH (06:07)
[2019-02-17 07:40] VITALS: BP 129/68
[2019-02-17] MEDS: DEXAMETHASONE 4 MG TABLET PO SCH ×3 (08:17→16:31)
[2019-02-17 09:44] LABS: % IRON SATURATION 25 % (20-55); ALANINE AMINOTRANSFERASE 31 U/L (12-78); ALBUMIN 2.2 g/dL (3.4-5.0); IRON LEVEL 83 mcg/dL (65-175); TOTAL IRON BINDING CAPACITY 333 mcg/dL (250-450)
[2019-02-17 09:57] LABS: ABSOLUTE RETICS # 0.156 x10^6/uL (0.5-1.5); RED BLOOD COUNT 2.81 x10^6/uL (4.38-5.82); RETICULOCYTE COUNT % 5.55 % (0.5-1.5)
[2019-02-17] MEDS: SENNA/DOCUSATE TABLET PO SCH (10:06)
[2019-02-17] MEDS: CYCLOBENZAPRINE 10 MG TABLET PO SCH ×3 (10:06→20:00)
[2019-02-17 10:10] LABS: ALKALINE PHOSPHATASE 1049 U/L (45-117); BILIRUBIN,TOTAL 0.6 mg/dL (0.2-1.0); TOTAL PROTEIN 4.6 g/dL (6.4-8.2)
[2019-02-17 11:42] LABS: MICROSCOPIC NOT IND
[2019-02-17 13:45] VITALS: BP 109/55
[2019-02-17 18:53] VITALS: BP 114/66
[2019-02-17] MEDS: ENOXAPARIN 40 MG/0.4 ML SQ SCH (20:01)
[2019-02-18 02:02] VITALS: BP 137/72
[2019-02-18] MEDS: PANTOPROZOLE 40MG TABLET PO SCH (05:24)
[2019-02-18 06:58] VITALS: BP 134/76
[2019-02-18] MEDS: DEXAMETHASONE 4 MG TABLET PO SCH ×3 (08:23→16:45)
[2019-02-18] MEDS: CYCLOBENZAPRINE 10 MG TABLET PO SCH ×3 (08:23→20:27)
[2019-02-18] MEDS: SENNA/DOCUSATE TABLET PO SCH (08:23)
[2019-02-18 09:29] LABS: MEAN CORPUSCULAR HGB CONC 31.9 g/dL (33.2-36.2); MEAN PLATELET VOLUME 6.8 fL (7.4-10.4); PLATELET COUNT 393 x10^3/uL (130-400); RED BLOOD COUNT 3.39 x10^6/uL (4.38-5.82); RED CELL DISTRIBUTION WIDTH 17.9 % (9.4-14.8)
[2019-02-18 09:38] LABS: ALBUMIN 2.7 g/dL (3.4-5.0); ANION GAP 9 mmol/L (5-15); CHLORIDE 101 mmol/L (98-107)
[2019-02-18 09:55] LABS: ALANINE AMINOTRANSFERASE 38 U/L (12-78); ALKALINE PHOSPHATASE 1295 U/L (45-117); BILIRUBIN,TOTAL 1.2 mg/dL (0.2-1.0); CREATININE 0.76 mg/dL (0.7-1.3); TOTAL PROTEIN 5.4 g/dL (6.4-8.2)
[2019-02-18 09:56] LABS: BASOPHILS # (AUTO) 0.04 x10^3/uL (0-0.1); BASOPHILS % (AUTO) 0 % (0-1); EOSINOPHILS % (AUTO) 0 % (1-7); LYMPHOCYTES # (AUTO) 1.08 x10^3/uL (1-3.4); LYMPHOCYTES % (AUTO) 5 % (22-44); MD SCAN; MONOCYTES # (AUTO) 0.49 x10^3/uL (0.2-0.8); MONOCYTES % (AUTO) 2 % (2-9); NEUTROPHILS # (AUTO) 18.61 x10^3/uL (1.8-6.8); NEUTROPHILS % (AUTO) 92 % (42-75)
[2019-02-18] MEDS ORDERED: CYCL-259 PO (11:08)
[2019-02-18] MEDS ORDERED: HYDR-3240 PO (11:08)
[2019-02-18] MEDS ORDERED: PANT40TA5 PO (11:08)
[2019-02-18] MEDS ORDERED: DEXA4TAB66 PO (11:16)
[2019-02-18] MEDS ORDERED: ENOX40SY4 SQ (11:17)
[2019-02-18 12:49] VITALS: BP 122/61
[2019-02-18 20:11] VITALS: BP 123/68
[2019-02-18] MEDS: ENOXAPARIN 40 MG/0.4 ML SQ SCH (20:27)
[2019-02-19 02:47] VITALS: BP 127/71
[2019-02-19] MEDS: PANTOPROZOLE 40MG TABLET PO SCH (05:25)
[2019-02-19 08:58] VITALS: BP 123/64
[2019-02-19] MEDS: CYCLOBENZAPRINE 10 MG TABLET PO SCH (09:00)
[2019-02-19] MEDS: SENNA/DOCUSATE TABLET PO SCH (09:00)
[2019-02-19] MEDS: DEXAMETHASONE 4 MG TABLET PO SCH ×2 (09:49→12:00)
== END 2019-02-19 12:07 | DRG 456 ==
LOC: ED 09:50 → 4NOR 13:17 → ED 14:15 → 4NOR 14:15 → 3NW 02-16 17:47
PROVIDERS: ADMIT Hospitalist; ATTEND Hospitalist
PROC: 0QSH06Z Reposition Left Tibia with Intramedullary Internal Fixation Device, Open Approach (ICD-10-PCS; 2019-02-06)
PROC: 30233N1 Transfusion of Nonautologous Red Blood Cells into Peripheral Vein, Percutaneous Approach (ICD-10-PCS; 2019-02-08)
PROC: 0SG1071 Fusion of 2 or more Lumbar Vertebral Joints with Autologous Tissue Substitute, Posterior Approach, Posterior Column, Open Approach (ICD-10-PCS; 2019-02-09)
PROC: 0RGA071 Fusion of Thoracolumbar Vertebral Joint with Autologous Tissue Substitute, Posterior Approach, Posterior Column, Open Approach (ICD-10-PCS; 2019-02-09)
PROC: 01N80ZZ Release Thoracic Nerve, Open Approach (ICD-10-PCS; 2019-02-09)
PROC: 01NB0ZZ Release Lumbar Nerve, Open Approach (ICD-10-PCS; 2019-02-09)
PROC: 4A11X4G Monitoring of Peripheral Nervous Electrical Activity, Intraoperative, External Approach (ICD-10-PCS; 2019-02-09)
PROC: 03HY32Z Insertion of Monitoring Device into Upper Artery, Percutaneous Approach (ICD-10-PCS; 2019-02-09)
PROC: 0RG7071 Fusion of 2 to 7 Thoracic Vertebral Joints with Autologous Tissue Substitute, Posterior Approach, Posterior Column, Open Approach (ICD-10-PCS; principal; 2019-02-09 12:45)
DX: C79.51 Secondary malignant neoplasm of bone (principal); R53.2 Functional quadriplegia; M84.469A Pathological fracture, unspecified tibia and fibula, initial encounter for fracture; M51.06 Intervertebral disc disorders with myelopathy, lumbar region; E87.1 Hypo-osmolality and hyponatremia; D62 Acute posthemorrhagic anemia; C61 Malignant neoplasm of prostate; I08.1 Rheumatic disorders of both mitral and tricuspid valves; I10 Essential (primary) hypertension; I27.20 Pulmonary hypertension, unspecified; M17.12 Unilateral primary osteoarthritis, left knee; M48.04 Spinal stenosis, thoracic region; Z82.0 Family history of epilepsy and other diseases of the nervous system; Z82.49 Family history of ischemic heart disease and other diseases of the circulatory system; Z87.891 Personal history of nicotine dependence; M88.9 Osteitis deformans of unspecified bone
CPT/HCPCS: 0399T; 36415; 71260; 72072; 72110; 72128; 72158; 74177; 76000; 78306; 80048; 80053; 81003; 82040; 82306; 82330; 82607; 82728; 83540; 83550; 83735; 84100; 85025; 85045; 85651; 86850; 86900; 86923; 87070; 87075; 87205; 88305; 88341; 88342; 93005; 93306; 93922; 93970; 95938; 95941; 99285; A9585; C1713; G0103; G0378; J0690; J1100; J1650; J2250; J2405; J2704; J3010; Q9967; A9503; C1762; C9113; C9898; J0330; J1030; J2270; J2370; J7030; P9016

== ENCOUNTER → 2019-03-07 | Outpatient (CLI) | payer MEDICARE ==
[~2019-03-07] MED LIST: ACET650S21 PO; CYCL-259 PO; DEXA4TAB66 PO; ENOX40SY4 SQ; HYDR-3240 PO; MELO15TA24 PO; PANT40TA5 PO; TIZA2TAB PO
== END | disposition home or self-care (01) ==
LOC: ROC 03-02 08:28
PROVIDERS: ATTEND Radiology Radiation Oncology
DX: C61 Malignant neoplasm of prostate (principal); C79.51 Secondary malignant neoplasm of bone; C79.89 Secondary malignant neoplasm of other specified sites
CPT/HCPCS: G0463